=== PATIENT | male | born 1950 | race African-American/Black ===

== ENCOUNTER 2016-10-31 10:43 | Observation (INO) ==
[2016-10-31] MEDS ORDERED: ENOXAPARIN 100 MG/ML SYRINGE SUBCUT STA (11:14)
[2016-10-31] MEDS ORDERED: MORPHINE 2 MG/1 ML SYRINGE IV PRN ×2 (11:14→14:49)
[2016-10-31] MEDS ORDERED: ALUM/MAG/SIMETH/LIDO VISC 1:1 30 ML BOTTLE PO STA (11:14)
[2016-10-31] MEDS ORDERED: ONDANSETRON 4 MG/2 ML VIAL IV PRN ×2 (11:14→14:49)
[2016-10-31] MEDS ORDERED: ASPIRIN 325 MG TABLET PO STA (11:14)
[2016-10-31] MEDS ORDERED: ENOXAPARIN 100 MG/ML SYRINGE SUBCUT ONE (11:26)
[2016-10-31] MEDS ORDERED: ALUM/MAG/SIMETH/LIDO VISC 1:1 30 ML BOTTLE PO ONE (11:26)
[2016-10-31] MEDS ORDERED: ASPIRIN 325 MG TABLET ONE (11:26)
--- NOTE | 2016-10-31 11:30 | Emergency Department Note ---
Adilson Castellanos Hilary, am scribing for, and in the presence of, Alexi Loznao MD 11: 26. Marta Castellanos James D, MD, personally performed the services described in this documentation, ascribed by Elsi De Anda in my presence, and it is both accurate and complete . Arrival - Arrival Chief Complaint: Chest Pain Stated Complaint: chest pain ED Nursing Triage Note: PT C/O LEFT SIDED CHEST PAIN BENEATH LEFT BREAST AND AROUND TO SIDE X3 DAYS. PT ALSO C/O SINUS CONGESTION. DENIES SOB OR NAUSEA. DENIES PAINFUL COUGHS OR INSPIRATION. Mode of Arrival: Wheelchair Limitations: No Limitations Source: Patient, RN Notes Reviewed - History of Present Illness HPI Narrative: Pt is a 66 y/o black male presenting to the ED with left sided chest pain beneath left breast which onset a week ago. Pt states he thought it was just indigestion. Pt confirms chest pain, diaphoresis but denies nausea, SOB or abdominal pain. No other complaints or problems stated in the ED. Pt states he had a negative stress test done in 2011. Onset (ago): week(s) Consistency: intermittent Severity: mild Severity scale (1-10): 1 Quality: sharp Allergies/Adverse Reactions: Allergies Allergy/AdvReac Type Severity Reaction Status Date / Time No Known Allergies Allergy Verified 10/31/16 11:05 Home Medications: Home Medications Medication Instructions Recorded Confirmed Type Aspirin EC Tab 81 mg PO QAM 10/31/16 10/31/16 History Atorvastatin [Lipitor] 10 mg PO QAM 10/31/16 10/31/16 History Losartan [Cozaar] 50 mg PO BEDTIME 10/31/16 10/31/16 History Metformin HCl 1,000 mg PO BID 10/31/16 10/31/16 History Tamsulosin [Flomax] 0.4 mg PO BEDTIME 10/31/16 10/31/16 History Review of System - Review of System 12 point system: reviewed and no additional remarkable complaints except as stated - Review of System Constitutional: Present: diaphoresis. Absent: fever Respiratory: Absent: respiratory distress (SOB) Cardiovascular: Present: chest pain Gastrointestinal: Present: nausea. Absent: abdominal pain Medical,Surgical,& Family Hx - Medical History Cardio: History of: Hypertension Endocrine: History of: Diabetes Mellitus (NIDDM), Dyslipidemia - Social History Smoking Status: Never smoker Frequency of Alcohol Use: None Type of Drug Use: None Exam Physical Examination: GENERAL: This is a well-nourished, well-developed black male in no apparent distress. VITAL SIGNS: Temperature: 97.0 Pulse: 65 Respiratory: 18 Blood Pressure: 132/ 69 O2Sat: 98 HEENT: Head is normocephalic and atraumatic. Pupils are equally round and reactive to light. Extraocular movement are intact. Oropharynx is benign with moist mucous membranes. NECK: Neck is soft and supple without tenderness. There are no masses. There is no lymphadenopathy. LUNGS: Lungs are clear to auscultation bilaterally. Chest rises symmetrically. There is no chest wall tenderness. CV: Heart is regular rate and rhythm without murmurs, rubs, or gallops. ABDOMEN: Abdomen is soft, non-tender to palpation. There are no abnormal masses palpated. There is no organomegaly. Bowel sounds are present and active. SKIN: Skin is warm and dry. No rash. EXTREMITIES: Patient has full range of motion without tenderness. There is no pedal edema. NEUROLOGIC: Awake, alert, and oriented x4. Cranial nerves II through XII are grossly intact. There are no motorsensory deficits. PSYCHIATRIC: Normal affect. Normal mood. Vital Signs: Vital Signs Temperature 97.0 F L 10/31/16 11:30 Pulse Rate 65 10/31/16 11:30 Respiratory Rate 18 10/31/16 11:30 Blood Pressure 132/69 10/31/16 11:30 O2 Sat by Pulse Oximetry 98 10/31/16 11:00 Course - Consultations Consultation #1: Discussed with hospitalist. Patient will be admitted to their service. Time: 13:38 Results - Labs CBC & BMP: 10/31/16 11:15 10/31/16 11:15 Lab Results: I have reviewed the patients labs Labs: Laboratory Tests 10/31/16 10/31/16 10/31/16 11:15 11:15 11:15 WBC 7.3 RBC 4.06 Hgb 12.6 L Hct 37.5 L Plt Count 226 MPV 10.1 INR 1.0 PT Patient/Control Mix 11.0 Circ Anticoag PTT 22.3 Sodium 143 Potassium 4.4 Chloride 107 Carbon Dioxide 27 Glucose 166 H Troponin I 10/31/16 11:15 WBC RBC Hgb Hct Plt Count MPV INR PT Patient/Control Mix Circ Anticoag PTT Sodium Potassium Chloride Carbon Dioxide Glucose Troponin I < 0.015 - EKG EKG results: interpreted by ERMD - Impressions EKG: Sinus bradycardia with a rate of 56, nonspecific ST-T wave changes, normal axis. - Diagnostic Findings Procedure: Chest x-ray: image reviewed by me, report reviewed by me (Bibasilar scarring or atelectasis. Prior granulomatous disease) Disposition Clinical Impression: Chest pain Case discussed with: patient Disposition: Still a Patient Condition: Stable
[2016-10-31 12:12] LABS: Basophils % 0.6 % (0.0-0.8); Eosinophils # 0.1 10*3/uL (0.0-0.87); Eosinophils % 1.9 % (0.00-10.9); Hematocrit 37.5 VOL% (42.0-52.0); Hemoglobin 12.6 GM/DL (14.0-18.0); Immature Granulocytes % 0.6 %; Immature Granulocytes Absolute 0.04 #; Lymphocytes # 1.8 10*3/uL (1.4-4.0); Lymphocytes % 24.4 % (21.2-54.2); Mean Corpuscular HGB Conc 33.6 GM/DL (32-36); Mean Corpuscular Hemoglobin 31 PG (27-34); Mean Corpuscular Volume 92.4 FL (87-102); Mean Platelet Volume 10.1 FL (9.6-12.0); Monocytes # 0.6 10*3/uL (0.11-0.8); Monocytes % 7.6 % (1.7-12.7); Neutrophils # 4.7 10*3/uL (1.4-7.4); Neutrophils % 64.9 % (38.7-73.9); Platelet Count 226 T/CUMM (130-400); Red Blood Count 4.06 MC/CUMM (3.8-5.5); Red Cell Distribution Width 13.1 % (9.3-17.3); White Blood Count 7.3 T/CUMM (4-12)
[2016-10-31 12:29] LABS: Partial Thromboplastin Time 22.3 SECS (0-40)
[2016-10-31 12:39] LABS: Potassium 4.4 MMOL/L (3.5-5.1)
--- NOTE | 2016-10-31 13:06 | XRay Report ---
XR chest 2V Indication: Chest pain. Chest 2 views: No comparison. Heart size is normal. Calcified atheromatous disease the aorta is present. There is scarring or atelectasis at both lung bases. No discrete infiltrates or pulmonary edema shown. Calcified granuloma left hilar regions noted. Impression: Bibasilar scarring or atelectasis. Prior granulomatous disease. PROCEDURE INTERPRETED AT [facility] DEPARTMENT OF RADIOLOGY Final Report Signed by: Lamonte Mejia M.D.
--- NOTE | 2016-10-31 14:41 | Hospitalist History & Physical ---
Assessment and Plan - Time spent with patient Time spent with patient: Greater than 30 minutes (1) Chest pain Status: Acute Assessment and plan: Sent from Dr Osuna office for further evaluation of left sided chest pain x3 days. Troponin negative. will admit for observation. will repeat troponin and EKG. Will discuss with Dr Cee for further recommendations. Current Visit: Yes History of Present Illness Chief complaint: left sided chest pain History of present illness: Mr. Moore is a 66 year old black male with PMHx hypertension and diabetes, dyslipidemia presented to the ED from Dr Osuna's office for left sided chest pain with diaphoresis. He reports the left sided discomfort started 3 days ago , and comes and goes but he felt it was just "gas". He reports going to Dr Osuna office this morning and he was sent to the ED for further evaluation. He denies any nausea, vomiting, back pain, jaw pain, arm pain, fever, or chills. Denies dizziness. No edema noted to lower extremities. Denies smoking , denies alcohol use, and denies any drug use. 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 Denies any leg/calf pain. IN ED: Bibasilar scarring or atelectasis; prior granulomatous disease. LABS: H &H 12.6 & 37.5; INR 1.10; PT 11.0; Electrolytes within normal ranges. Troponin < 0.015. Glucose 166. After discussion with Dr Lozano in the ED and Dr Cee with Hospital Medicine agrees patient will be admitted for observation. Home medications will be reviewed and reconciliation to follow. Home Medications Medication Instructions Recorded Confirmed Type Aspirin EC Tab 81 mg PO QAM 10/31/16 10/31/16 History Atorvastatin [Lipitor] 10 mg PO QAM 10/31/16 10/31/16 History Losartan [Cozaar] 50 mg PO BEDTIME 10/31/16 10/31/16 History Metformin HCl 1,000 mg PO BID 10/31/16 10/31/16 History Tamsulosin [Flomax] 0.4 mg PO BEDTIME 10/31/16 10/31/16 History Allergies Allergy/AdvReac Type Severity Reaction Status Date / Time No Known Allergies Allergy Verified 10/31/16 11:05 Medical,Surgical,& Family Hx - Medical History Cardio: History of: Hypertension Endocrine: History of: Diabetes Mellitus (NIDDM), Dyslipidemia - Social History Smoking Status: Never smoker Frequency of Alcohol Use: None Type of Drug Use: None Marital Status: Lives With:: Spouse Functional capacity: independent ambulation Review of systems: ROS completed and pertinent positives and negatives in the HPI. Exam - Constitutional Vitals: Period Temp Pulse Resp BP Sys/Graf Pulse Ox Last 24 Hr 97.0 F-97.0 F 65-65 18-18 132-132/69-69 98 General appearance: normal weight, no acute distress - Head Head exam: Present: normal inspection - Eye Eye exam: Present: EOMI Pupils: Present: VANDA - ENT ENT exam: Present: normal exam - Neck Neck exam: Present: normal inspection. Absent: thyromegaly - Respiratory Respiratory exam: Present: clear to auscultation bilaterally. Absent: stridor, wheezes - Cardiovascular Cardiovascular exam: Present: regular rate and rhythm - GI/Abdominal GI/Abdominal exam: Present: normal bowel sounds, soft. Absent: tenderness, rebound - Extremities Exam Extremities exam: Present: normal inspection, full ROM. Absent: edema - Neurological Exam Neurological exam: Present: alert, oriented X3, CN II-XII intact - Psychiatric Psychiatric exam: Present: normal affect, normal mood. Absent: agitated, anxious - Skin Skin exam: Present: normal color, warm, dry Results - Labs CBC & BMP: 10/31/16 11:15 10/31/16 11:15 Lab Results: I have reviewed the past 24 hour labs Labs: Troponin <0.015
[2016-10-31] MEDS ORDERED: DOCUSATE SODIUM 100 MG CAPSULE PO PRN (14:49)
[2016-10-31] MEDS ORDERED: ACETAMINOPHEN 325 MG TABLET PO PRN (14:49)
[2016-10-31] MEDS ORDERED: DEXTROSE 50% 25 GM/50 ML SYRINGE IV PRN (14:58)
[2016-10-31] MEDS ORDERED: GLUCAGON 1 MG VIAL IM PRN (14:58)
[2016-10-31] MEDS ORDERED: ENOXAPARIN 40 MG/0.4 ML SYRINGE SUBCUT SCH (15:00)
[2016-10-31] MEDS ORDERED: ALUMINUM/MAGNES/SIMETH MAX STR 30 ML UDCUP PO PRN (15:24)
--- NOTE | 2016-10-31 15:37 | EKG Report ---
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
[2016-10-31] MEDS: SODIUM CHLORIDE 0.9% 1,000 ML IV SCH (16:04)
[2016-10-31] MEDS: INSULIN LISPRO 100 UNIT/ML SUBCUT SCH ×2 (17:24→21:57)
[2016-10-31] MEDS ORDERED: TAMSULOSIN 0.4 MG CAPSULE PO SCH ×2 (21:00)
[2016-10-31] MEDS ORDERED: LOSARTAN 50 MG TABLET PO SCH ×2 (21:00)
[2016-10-31] MEDS: metFORMIN 500 MG TABLET PO SCH (21:58)
[2016-11-01] MEDS: SODIUM CHLORIDE 0.9% 1,000 ML IV SCH (01:44)
[2016-11-01 05:30] LABS: Basophils % 0.3 % (0.0-0.8); Eosinophils # 0.2 10*3/uL (0.0-0.87); Eosinophils % 2.7 % (0.00-10.9); Hematocrit 33.4 VOL% (42.0-52.0); Hemoglobin 11.2 GM/DL (14.0-18.0); Immature Granulocytes % 0.3 %; Immature Granulocytes Absolute 0.02 #; Lymphocytes # 1.7 10*3/uL (1.4-4.0); Lymphocytes % 27.5 % (21.2-54.2); Mean Corpuscular HGB Conc 33.5 GM/DL (32-36); Mean Corpuscular Hemoglobin 31 PG (27-34); Mean Platelet Volume 10.6 FL (9.6-12.0); Monocytes # 0.5 10*3/uL (0.11-0.8); Monocytes % 7.4 % (1.7-12.7); Neutrophils # 3.9 10*3/uL (1.4-7.4); Neutrophils % 61.8 % (38.7-73.9); Platelet Count 206 T/CUMM (130-400); Red Blood Count 3.63 MC/CUMM (3.8-5.5); Red Cell Distribution Width 12.8 % (9.3-17.3); White Blood Count 6.3 T/CUMM (4-12)
[2016-11-01 06:17] LABS: Alanine Aminotransferase < 9 U/L (16-61); Albumin 3.1 G/DL (3.4-5.0); Alkaline Phosphatase 37 U/L (45-117); Aspartate Amino Transferase 10 U/L (0-37); Blood Urea Nitrogen 16 MG/DL (7-18); Calcium 8.4 MG/DL (8.5-10.1); Cholesterol 201 MG/DL (50-200); Glucose 117 MG/DL (74-106); HDL Cholesterol 65 MG/DL (40-60); Potassium 4.3 MMOL/L (3.5-5.1); Risk Ratio 3.09; Sodium 143 MMOL/L (136-145); Total Protein 5.6 G/DL (6.4-8.3); Triglycerides 110 MG/DL (2-150)
--- NOTE | 2016-11-01 08:06 | EKG Report ---
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
--- NOTE | 2016-11-01 08:07 | EKG Report ---
Stationary ECG Study 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
--- NOTE | 2016-11-01 08:29 | EKG Report ---
Stationary ECG Study 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
[2016-11-01 08:31] VITALS: BP 128/82
[2016-11-01] MEDS: INSULIN LISPRO 100 UNIT/ML SUBCUT SCH (08:45)
[2016-11-01] MEDS: metFORMIN 500 MG TABLET PO SCH (08:45)
[2016-11-01] MEDS ORDERED: PANTOPRAZOLE 40 MG TABLET PO SCH (09:00)
[2016-11-01] MEDS ORDERED: ASPIRIN EC 81 MG TABLET PO SCH ×2 (09:00)
[2016-11-01] MEDS ORDERED: ATORVASTATIN 10 MG TABLET PO SCH ×2 (09:00)
--- NOTE | 2016-11-01 10:39 | Discharge Summary ---
Hospital Course - Hospital Course Hospital Course: 66-year-old -[place] male with history of hypertension, diabetes, dyslipidemia admitted by the hospitalist service from the ER and Dr. Osuna's office for left-sided chest pain with diaphoresis. His initial troponins and EKG were negative. He did get symptom relief from the GI cocktail given in the ED. Patient's chest pain is resolved and his serial EKG and troponins have all been negative. We will start him on a regular PPI and have him follow-up with Dr. Osuna in 1-2 weeks. Also recommend patient consider an outpatient stress test and a follow-up with gynaecological oncologist. Patient has seen a gynaecological oncologist that was set up by Dr. Osuna's office at one time and a stress test several years ago but there are no records in our system nor can the patient remember the physician's name. We will go ahead and set him up with [facility] and see if they have records of this patient. Otherwise he can see whoever is available as an outpatient and they can perform stress test if they feel it is needed. Complete discharge instructions were given to the patient. Care coordination, chart review, and completed discharge paperwork took approximately 37 minutes. - Time spent with patient Time with patient DS: Greater than 30 minutes Diagnosis - Discharge Diagnosis (1) GERD (gastroesophageal reflux disease) Status: Chronic (2) Diabetes Status: Chronic (3) Hypertension Status: Chronic (4) Chest pain Status: Resolved Discharge Plan - Discharge Data Disposition: Discharge Diet: diabetic diet, heart healthy Activity: resume usual activities as tolerated Driving: no restrictions Contact your physician if you experience:: Shortness of breath, pain uncontrolled by pain medications - Discharge Medications New Omeprazole 40 mg PO DAILY #60 capsule Continue Tamsulosin [Flomax] 0.4 mg PO BEDTIME Losartan [Cozaar] 50 mg PO BEDTIME Metformin HCl 1,000 mg PO BID Atorvastatin [Lipitor] 10 mg PO QAM Aspirin EC Tab 81 mg PO QAM - Follow Up or Referral Follow Up: Enrrique Meléndez [Other] - 2 Weeks Cardiology - [facility] [Provider Group] (see if pt has seen any of these cardiologists and set up for appt for stress test, if not then set him up w whoever) - Forms/Instructions Exam - Constitutional Vitals: Period Temp Pulse Resp BP Sys/Graf Pulse Ox Last 24 Hr 97.0 F-98.2 F 54-65 16-20 113-168/61-82 97-100 Exam: 66-year-old -[place] male, no acute distress, alert and oriented Chest clear CV regular rate rhythm Abdomen soft nontender Extremities no edema Discharge Results Labs on day of discharge: Labs from last 24 hours 11/01/16 11/01/16 11/01/16 07:43 05:01 05:01 WBC RBC Hgb Hct MCV MCH MCHC RDW Plt Count MPV Neut % (Auto) Lymph % (Auto) [place] % (Auto) Eos % (Auto) Baso % (Auto) Neut # (Auto) Lymph # (Auto) [place] # (Auto) Eos # (Auto) Baso # (Auto) Immature Gran % Nucleated RBC % Immature Gran # Nucleated RBCs # Immature Plt Fraction INR PT Patient/Control Mix Circ Anticoag PTT Sodium Potassium Chloride Carbon Dioxide Anion Gap BUN Creatinine GFR Calculation BUN/Creatinine Ratio Glucose POC Glucose 153 H Hemoglobin A1c 8.7 H Calculated Osmolality Calcium Total Bilirubin AST ALT Alkaline Phosphatase Troponin I < 0.015 Total Protein Albumin Globulin Albumin/Globulin Ratio Triglycerides Cholesterol LDL Cholesterol VLDL Cholesterol HDL Cholesterol Heart Disease Risk Ratio 11/01/16 11/01/16 10/31/16 05:01 05:01 20:24 WBC 6.3 RBC 3.63 L Hgb 11.2 L Hct 33.4 L MCV 92.0 MCH 31 MCHC 33.5 RDW 12.8 Plt Count 206 MPV 10.6 Neut % (Auto) 61.8 Lymph % (Auto) 27.5 [place] % (Auto) 7.4 Eos % (Auto) 2.7 Baso % (Auto) 0.3 Neut # (Auto) 3.9 Lymph # (Auto) 1.7 [place] # (Auto) 0.5 Eos # (Auto) 0.2 Baso # (Auto) 0.0 Immature Gran % 0.3 Nucleated RBC % 0.0 Immature Gran # 0.02 Nucleated RBCs # 0.00 Immature Plt Fraction 0.0 INR PT Patient/Control Mix Circ Anticoag PTT Sodium 143 Potassium 4.3 Chloride 109 H Carbon Dioxide 26 Anion Gap 12.3 BUN 16 Creatinine 1.20 GFR Calculation 83 BUN/Creatinine Ratio 13.00 Glucose 117 H POC Glucose 217 H Hemoglobin A1c Calculated Osmolality 286.0 Calcium 8.4 L Total Bilirubin 0.50 AST 10 ALT < 9 L Alkaline Phosphatase 37 L Troponin I Total Protein 5.6 L Albumin 3.1 L Globulin 2.5 Albumin/Globulin Ratio 1.2 Triglycerides 110 Cholesterol 201 H LDL Cholesterol 109.0 VLDL Cholesterol 22.0 HDL Cholesterol 65 H Heart Disease Risk Ratio 3.09 10/31/16 10/31/16 10/31/16 18:54 16:26 15:49 WBC RBC Hgb Hct MCV MCH MCHC RDW Plt Count MPV Neut % (Auto) Lymph % (Auto) [place] % (Auto) Eos % (Auto) Baso % (Auto) Neut # (Auto) Lymph # (Auto) [place] # (Auto) Eos # (Auto) Baso # (Auto) Immature Gran % Nucleated RBC % Immature Gran # Nucleated RBCs # Immature Plt Fraction INR PT Patient/Control Mix Circ Anticoag PTT Sodium Potassium Chloride Carbon Dioxide Anion Gap BUN Creatinine GFR Calculation BUN/Creatinine Ratio Glucose POC Glucose 159 H Hemoglobin A1c Calculated Osmolality Calcium Total Bilirubin AST ALT Alkaline Phosphatase Troponin I < 0.015 < 0.015 Total Protein Albumin Globulin Albumin/Globulin Ratio Triglycerides Cholesterol LDL Cholesterol VLDL Cholesterol HDL Cholesterol Heart Disease Risk Ratio 10/31/16 10/31/16 10/31/16 11:15 11:15 11:15 WBC 7.3 RBC 4.06 Hgb 12.6 L Hct 37.5 L MCV 92.4 MCH 31 MCHC 33.6 RDW 13.1 Plt Count 226 MPV 10.1 Neut % (Auto) 64.9 Lymph % (Auto) 24.4 [place] % (Auto) 7.6 Eos % (Auto) 1.9 Baso % (Auto) 0.6 Neut # (Auto) 4.7 Lymph # (Auto) 1.8 [place] # (Auto) 0.6 Eos # (Auto) 0.1 Baso # (Auto) 0.0 Immature Gran % 0.6 Nucleated RBC % 0.0 Immature Gran # 0.04 Nucleated RBCs # 0.00 Immature Plt Fraction 0.0 INR PT Patient/Control Mix Circ Anticoag PTT Sodium 143 Potassium 4.4 Chloride 107 Carbon Dioxide 27 Anion Gap 13.4 BUN 16 Creatinine 1.30 GFR Calculation 75 BUN/Creatinine Ratio 12.00 Glucose 166 H POC Glucose Hemoglobin A1c Calculated Osmolality 289.0 Calcium 9.0 Total Bilirubin AST ALT Alkaline Phosphatase Troponin I < 0.015 Total Protein Albumin Globulin Albumin/Globulin Ratio Triglycerides Cholesterol LDL Cholesterol VLDL Cholesterol HDL Cholesterol Heart Disease Risk Ratio 10/31/16 11:15 WBC RBC Hgb Hct MCV MCH MCHC RDW Plt Count MPV Neut % (Auto) Lymph % (Auto) [place] % (Auto) Eos % (Auto) Baso % (Auto) Neut # (Auto) Lymph # (Auto) [place] # (Auto) Eos # (Auto) Baso # (Auto) Immature Gran % Nucleated RBC % Immature Gran # Nucleated RBCs # Immature Plt Fraction INR 1.0 PT Patient/Control Mix 11.0 Circ Anticoag PTT 22.3 Sodium Potassium Chloride Carbon Dioxide Anion Gap BUN Creatinine GFR Calculation BUN/Creatinine Ratio Glucose POC Glucose Hemoglobin A1c Calculated Osmolality Calcium Total Bilirubin AST ALT Alkaline Phosphatase Troponin I Total Protein Albumin Globulin Albumin/Globulin Ratio Triglycerides Cholesterol LDL Cholesterol VLDL Cholesterol HDL Cholesterol Heart Disease Risk Ratio DS: Provider Date of admission: 10/31/16 13:59 Primary care physician: . No PCP Attending physician on admission: Arely Cee MD Discharging clinician: JOSUÉ Carey Expected date of discharge: 11/01/16
== END 2016-11-01 11:48 | disposition home or self-care (01) ==
LOC: N.ED 10:43 → INTOOBSV 13:59 → N.EDINP 13:59 → N.TELEN 15:19
PROVIDERS: ADMIT Internal Medicine; ATTEND Internal Medicine